=== PATIENT | male | born 1950 | race Caucasian/White ===

== ENCOUNTER → 2019-05-21 | Outpatient (CLI) | payer MEDICARE, SELFPAY ==
[2019-04-30 11:04] VITALS: BMI 39.9
--- NOTE | 2019-05-21 10:55 | ECHOCS_ITS ---
Reason For Study: PHTN, PACs Procedure This was a 2D Doppler, Color Flow transthoracic echocardiogram. The study was technically difficult. Due to body habitus and arrhythmia. Exam performed in department. Left Ventricle Normal size and thickness. The estimated ejection fraction is 65 %. No regional wall motion abnormalities noted. Right Ventricle Severely dilated right ventricle. Mild to moderate global right ventricular systolic dysfunction. Atria The left atrium is moderately enlarged. Normal right atrium. Normal atrial septum. Mitral Valve The mitral valve is structurally normal. No prolapse or stenosis seen. Tricuspid Valve Normal tricuspid valve. Trivial tricuspid valve insufficiency. Right ventricular systolic pressure estimated to be 31 mmHg. Aortic Valve Normal aortic valve. Trisinus/trileaflet aortic valve. Pulmonic Valve Normal pulmonic valve. Great Vessels Normal aortic root. Normal arch. Normal inferior vena cava. Inferior vena cava collapse with sniff. Pericardium/Pleural No pericardial effusion. Medication 22 gauge I.V. with prn adaptor inserted into right arm. Diluted definity 4.0ml given slow IV push to enhance endocardial definition. MMode/2D Measurements & Calculations LVIDd: 5.8 cm IVSd: 1.0 cm Ao root diam: 3.6 cm LVIDs: 4.1 cm LVPWd: 1.3 cm RVDd: 4.6 cm FS: 29.6 % LAV(MOD-bp): 96.2 ml LA A4 area: 23.5 cm2 LA dimension(2D): 4.8 cm LAV(MOD-bp) Indexed: 36.0 ml/m2 LAV(MOD-sp2): 88.5 ml LAV(MOD-sp4): 88.9 ml RA A4 area: 15.5 cm2 Doppler Measurements & Calculations MV E max hunter: 68.3 cm/sec Lat Peak E' Hunter: 5.1 cm/sec Med Peak E' Hunter: 6.2 cm/sec MV A max hunter: 87.7 cm/sec E/E' lat: 13.4 E/E' med: 11.0 MV E/A: 0.78 Ao V2 max: 162.0 cm/sec LV V1 max: 87.4 cm/sec PA V2 max: 116.3 cm/sec Ao max P.6 mmHg LV V1 max P.1 mmHg TR max hunter: 255.3 cm/sec TR max P.1 mmHg Interpretation Summary The estimated ejection fraction is 65 %. Severely dilated right ventricle. Mild to moderate global right ventricular systolic dysfunction. The left atrium is moderately enlarged. Right ventricular systolic pressure estimated to be 31 mmHg. Compared to echo report dated 07/18/2017, no appreciable changes noted. The study was technically difficult. Contrast injection was performed. Ordering Physician: Dayday Vargas Referring Physician: Virgilio Hazel Performed By: India Becerra RDCS, RVT
== END | disposition home or self-care (01) ==
LOC: CVS 10:53
PROVIDERS: Family Provider Family Medicine; PCP Family Medicine; Referring Provider Internal Medicine Cardiovascular Disease; Visit Provider Internal Medicine Cardiovascular Disease
DX: I49.1 Atrial premature depolarization (principal)
CPT/HCPCS: 93306; Q9957; A4216; C8929

== ENCOUNTER → 2019-06-08 15:45 | Outpatient (CLI) | payer MEDICARE, SELFPAY ==
[2019-04-30 11:04] VITALS: BMI 39.9
--- NOTE | 2019-06-08 16:35 | RAD_ITS ---
STUDY: X-RAY - ABDOMEN/PELVIS REASON FOR EXAM: Male, 69 years old. Right-sided ureteral stone. TECHNIQUE: Single AP view of the abdomen / pelvis. COMPARISON: None. FINDINGS: Normal visualized lung bases. There is an unremarkable bowel gas pattern. There is no demonstrated free abdominal air. The visualized liver, spleen and kidneys are grossly normal in size and morphology. No definite renal or ureteral stones are seen, however the exam is markedly limited by significant overlying fecal contents. There are calcified phleboliths in the pelvis. Normal visualized osseous structures. RAD/Abdomen Single View IMPRESSION: No definite acute abnormality. Electronically Signed: German Coates MD at 17:09 EDT , Service support ,
== END ==
PROVIDERS: Family Provider Family Medicine; PCP Family Medicine; Referring Provider Nurse Practitioner Adult Health; Visit Provider Nurse Practitioner Adult Health
DX: N20.1 Calculus of ureter (principal)
CPT/HCPCS: 74018

== ENCOUNTER → 2019-07-08 09:04 | Outpatient (CLI) | payer MEDICARE, SELFPAY ==
[2019-04-30 11:04] VITALS: BMI 39.9
--- NOTE | 2019-07-08 15:50 | RAD_ITS ---
HISTORY:right sided kidney stone right sided kidney stone EXAMINATION/TECHNIQUE: XR Abdomen 1 View: COMPARISON: June 08, 2019 FINDINGS: LINES AND TUBES: None. BOWEL GAS PATTERN: Non-obstructive. No bowel or stomach distention. FREE AIR: Not assessed on a single supine view. ORGANOMEGALY: Not seen. CALCIFICATIONS: There are vascular calcifications in the pelvis There is a right ureteral stent with the proximal pigtail in the region of the right renal pelvis and the distal in the region of the bladder. Question calcifications overlying the right kidney but poorly visualized on this study I do not see calcifications within the ureter There are vascular cath occasions in the pelvis LOWER CHEST: Not visualized on this study BONES AND SOFT TISSUES: No acute pathology. RAD/Abdomen Single View IMPRESSION: Right ureteral stent. There may be calcifications seen overlying the right kidney but poorly visualized no calcifications are seen in the region of the right ureteral stent There are vascular calcifications in the pelvis at 0003 Reported and signed by: Twila Petty DO Electronically Signed: Twila Petty DO at 0:02 EDT Tel , Service support ,
== END ==
PROVIDERS: Family Provider Family Medicine; PCP Family Medicine; Referring Provider Urology; Visit Provider Urology
DX: N20.0 Calculus of kidney (principal)
CPT/HCPCS: 74018

== ENCOUNTER → 2019-07-13 14:04 | Outpatient (CLI) | payer MEDICARE, SELFPAY ==
[2019-04-30 11:04] VITALS: BMI 39.9
--- NOTE | 2019-07-13 14:07 | RAD_ITS ---
STUDY: X-RAY - ABDOMEN/PELVIS REASON FOR EXAM: Male, 69 years old. Right-sided kidney stone. TECHNIQUE: Single AP view of the abdomen / pelvis. COMPARISON: 07/08/2019. FINDINGS: Normal visualized lung bases. Right ureteral stent remains in satisfactory position. Faintly seen calcifications in position compatible with the right kidney are consistent with stones and were present previously. However there are less visualized calcifications on the right than on the previous study. No definite calcifications along the course of the ureter. There is an unremarkable bowel gas pattern. There is no demonstrated free abdominal air. The visualized liver, spleen and kidneys are grossly normal in size and morphology. There are calcified phleboliths in the pelvis. Normal visualized osseous structures. RAD/Abdomen Single View IMPRESSION: Stable right ureteral stent. Probable right renal stones, possibly fewer than on the previous study. Electronically Signed: German Coates MD at 16:09 EDT , Service support ,
== END ==
PROVIDERS: Family Provider Family Medicine; PCP Family Medicine; Referring Provider Nurse Practitioner Adult Health; Visit Provider Nurse Practitioner Adult Health
DX: N20.0 Calculus of kidney (principal)
CPT/HCPCS: 74018

== ENCOUNTER → 2019-08-23 14:30 | Outpatient (CLI) | payer MEDICARE, SELFPAY ==
[2019-04-30 11:04] VITALS: BMI 39.9
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
[2019-08-23 15:34] LABS: Anion Gap 5 (5-15); BUN 19 mg/dL (7-18); BUN/Creat Ratio 18.8 RATIO (10-20); Calcium,Total 8.9 mg/dL (8.5-10.1); Chloride 106 mmol/L (98-107); Creatinine, Serum 1.01 mg/dL (0.70-1.30); EST Glomerular Filtration Rate 77 mL/min (>60); Est Glom Filt Rate - Afr Amer 94 mL/min (>60); Glucose 81 mg/dL (74-106); Potassium 4.1 mmol/L (3.5-5.1); Sodium Level 141 mmol/L (136-145)
== END ==
PROVIDERS: Family Provider Family Medicine; PCP Family Medicine; Referring Provider Urology; Visit Provider Urology
DX: N20.0 Calculus of kidney (principal)
CPT/HCPCS: 36415; 74018; 80048

== ENCOUNTER 2020-01-27 15:15 | Emergency (ER) | payer MEDICARE, SELFPAY ==
[2019-04-30 11:04] VITALS: BMI 39.9
[2020-01-27 15:16] VITALS: BP 153/102; PULSE 92; PULSE 93; RESP 14; RESP 17; TEMP 36.6; O2SAT 95; O2SAT 97; BMI 41.0
--- NOTE | 2020-01-27 15:23 | EKG12_ITS ---
Test Reason : SOB Blood Pressure : / mmHG Vent. Rate : 095 BPM Atrial Rate : 095 BPM P-R Int : 220 ms QRS Dur : 122 ms QT Int : 398 ms P-R-T Axes : 073 -70 068 degrees QTc Int : 500 ms Sinus rhythm with 1st degree A-V block with Premature atrial complexes with Aberrant conduction Left axis deviation Inferior infarct , age undetermined Abnormal ECG Confirmed by ZOE DICKEY ([id number]), editor news JANET PRADO ([id number]) on 01/31/2020 1:04:18 PM Referred By: JEANMARIE Confirmed By:ZOE DICKEY
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
[2020-01-27 15:39] LABS: Absolute Lymphocyte Count 2.81 X10^3/uL (0.83-4.51); Basophil% 1.2 % (0-1); Eosinophil# 0.22 X10^3/uL; Eosinophils% 2.7 % (0-5); Hematocrit 49.5 % (40-54); Hemoglobin 15.7 g/dL (13.0-16.5); Lymphocyte # 2.81 X10^3/ul (4.0); Lymphocyte % 34.1 % (19-41); Mean Corp Hgb Conc 31.7 g/dL (32-36); Mean Corpuscular Hgb 29.5 pg (27.0-32.0); Mean Corpuscular Volume 92.9 fL (80-94); Monocyte# 0.96 X10^3/uL; Monocyte% 11.7 % (0-10); NRBC Flagged by Analyzer 0 % (0-5); Neutrophil # 4.03 X10^3/uL (2.7-7.7); Platelet Count 199 K/mm3 (150-450); RBC Distribution Width CV 13.4 % (11.6-14.6); RBC Distribution Width SD 45.4 fl (35.1-43.9); Red Blood Count 5.33 M/mm3 (4.6-6.2); White Blood Count 8.2 K/mm3 (4.4-11.0)
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
[2020-01-27 15:46] LABS: Base Excess 3 mmol/L (-2 to +2); Bicarbonate 28.8 mmol/L (22-26); Blood Gas Specimen Type ART; O2 Delivery Device NRB Mask; PO2 104 mmHG (75-100); SITE L Radial; SO2 97 % (95-99); Time Given 1540; Total Carbon Dioxide 30 mmol/L; pCO2 56.3 mmHg (35-45); pH 7.32 (7.35-7.45)
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
[2020-01-27 15:49] LABS: Prothrombin Time (Protime)PT. 13.2 SECONDS (11.7-14.9)
[2020-01-27 15:51] LABS: Partial Thromboplast Time 25.3 Seconds (24.1-36.2)
[2020-01-27 16:04] LABS: Anion Gap 8 (5-15); BUN 25 mg/dL (7-18); BUN/Creat Ratio 23.8 RATIO (10-20); Calcium,Total 8.7 mg/dL (8.5-10.1); Chloride 104 mmol/L (98-107); Creatinine, Serum 1.05 mg/dL (0.70-1.30); EST Glomerular Filtration Rate 74 mL/min (>60); Est Glom Filt Rate - Afr Amer 89 mL/min (>60); Estimated Creatinine Clearance 76.01 ml/min; Glucose 127 mg/dL (74-106); Potassium 3.9 mmol/L (3.5-5.1); Sodium Level 141 mmol/L (136-145)
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
[2020-01-27] MEDS: Diphth,Pertuss(Acell),Tet Vac 0.5 ML Vial IM (16:24)
[2020-01-27] MEDS: Cefazolin 1 GM/50 ML BAG IV (16:25)
[2020-01-27 16:43] VITALS: BP 130/79; PULSE 86; RESP 16; O2SAT 96; O2SAT 98
== END 2020-01-27 16:57 | disposition short-term general hospital (02) ==
PROVIDERS: Emergency Provider Emergency Medicine; PCP Family Medicine
DX: S27.321A Contusion of lung, unilateral, initial encounter (principal); S27.2XXA Traumatic hemopneumothorax, initial encounter; S06.0X9A Concussion with loss of consciousness of unspecified duration, initial encounter; S42.002A Fracture of unspecified part of left clavicle, initial encounter for closed fracture; S22.41XA Multiple fractures of ribs, right side, initial encounter for closed fracture; J96.01 Acute respiratory failure with hypoxia; J96.02 Acute respiratory failure with hypercapnia; V59.60XA Unspecified occupant of pick-up truck or van injured in collision with unspecified motor vehicles in traffic accident, initial encounter; Y93.89 Activity, other specified; Y92.9 Unspecified place or not applicable; M54.2 Cervicalgia; I10 Essential (primary) hypertension; E66.9 Obesity, unspecified; Z68.41 Body mass index [BMI] 40.0-44.9, adult; Z87.891 Personal history of nicotine dependence
CPT/HCPCS: 32551; 36600; 51702; 70450; 71045; 71250; 72125; 74176; 80048; 82803; 85025; 85610; 85730; 90715; 93005; 96365; 99285; J7030; A4216

== ENCOUNTER → 2020-02-17 13:54 | Outpatient (CLI) | payer MEDICARE, SELFPAY ==
[2020-01-27 15:16] VITALS: BMI 41.0
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
== END ==
LOC: CT 13:57
PROVIDERS: PCP Family Medicine; Referring Provider Physician Assistant Surgical; Visit Provider Physician Assistant Surgical
DX: S42.022A Displaced fracture of shaft of left clavicle, initial encounter for closed fracture (principal)
CPT/HCPCS: 73200

== ENCOUNTER → 2020-03-22 13:56 | Outpatient (CLI) | payer MEDICARE, SELFPAY ==
--- NOTE | 2020-03-22 14:10 | US_ITS ---
STUDY: THYROID ULTRASOUND REASON FOR EXAM: Male, 70 years old. GOITER TECHNIQUE: Ultrasound evaluation of the thyroid was performed with real-time and static gold-scale imaging. COMPARISON: None. FINDINGS: RIGHT LOBE: The right lobe of the thyroid gland is mildly enlarged, measuring 4.8 x 3.3 x 3.1 cm. There is a heterogeneous echotexture. A 2.9 x 1.9 x 2.0 cm heterogeneous circumscribed nodule is present in the midpole. LEFT LOBE: The left lobe of the thyroid gland is mildly to moderately enlarged measuring 5.8 x 2.4 x 3.0 cm. There is a heterogeneous echotexture. A 2.6 x 2.2 x 2.1 cm primarily hypoechoic but heterogeneous nodule is present in the midpole region. ISTHMUS: The isthmus measures 5 mm. The regional lymph nodes are normal. US/Thyroid IMPRESSION: 1. Bilateral heterogeneous dominant nodules of the thyroid gland statistically related to multinodular quarter. Definitive diagnosis can be obtained with ultrasound-guided fine-needle aspiration if clinically indicated. Electronically Signed: Roge Graf MD at 14:53 EDT , Service support ,
== END ==
PROVIDERS: PCP Family Medicine; Referring Provider Family Medicine; Visit Provider Family Medicine
DX: E04.9 Nontoxic goiter, unspecified (principal)
CPT/HCPCS: 76536

== ENCOUNTER → 2020-04-10 13:13 | Outpatient (CLI) | payer MEDICARE, SELFPAY ==
--- NOTE | 2020-04-10 | ASPIG_PTH ---
PATIENT: YFN BEJARANO LOC: [facility]#:[id number] AGE/SX: 75/M ROOM: RE04/10/[address]: Dr. Virgilio Hazel MD : 1950 BED: DIS: SPEC #: [id number] RECD: 04/10/20 14:32 STATUS: EKTA MICHELA #: [id number] NATTY: 04/10/20 00:[address]: Virgilio Hazel DEPT: CYTOLOGY RECD BY: Ashley Farley Tissues: Thyroid gland, NOS Procedures: FNA Specimen Adequacy Special Stain Group II Surgery Specimen Level IV Cytology Other HEADER OPERATION: Ultrasound-guided FNA left thyroid mass PRE-OP DIAGNOSIS: Left thyroid mass TISSUE SUBMITTED: Left thyroid mass DIAGNOSIS CYTOLOGY Fine needle aspiration, left thyroid mass (smears and cell block): Adequate for evaluation. Negative, consistent with benign follicular nodule. AM:duane 04/11/20 COMMENT The specimen is evaluated at the time of FNA by Dr. Klein. Immediate Evaluation: Pass 1 - Follicular cells present. Pass 2 - Follicular cells present. CYTOLOGY STUDY Slides are reviewed. CYTOLOGY GROSS Pass 1 - Received is 0.5 ml of reddish fluid labeled with the patient's name, and designated left thyroid mass. Four imprints and one pap are made from the submitted fluid and the rest is added to CytoLyt for cell block preparation. Submitted for cytology study. Pass 2 - Received is 0.2 ml of reddish fluid labeled with the patient's name, and designated left thyroid mass. Two imprints and one pap are made from the submitted fluid and the rest is added to CytoLyt for cell block preparation. Submitted for cytology study. / AM:duane 04/10/20 TC:5 CPT: 67475, 87182, 47982, 54784
--- NOTE | 2020-04-10 13:23 | US_ITS ---
PROCEDURE: ULTRASOUND GUIDED LEFT THYROID FNA/BIOPSY. DATE: April 10, 2020. INDICATION: Male, 70 years old. Left thyroid nodule. PHYSICIAN: Gonsalo Yates M.D. MEDICATIONS: 2% lidocaine administered subcutaneously for local anesthesia. ACCESS SITE: Left - anterior approach. NEEDLE: 25-gauge FNA needle. SPECIMEN: Multiple FNA specimen collected and given to pathology. EBL: None. COMPLICATIONS: None immediate. PROCEDURE: The risks, benefits, and alternatives to the procedure were explained to the patient. The specific risk of hemorrhage requiring further treatment or intervention was detailed and accepted. Written informed consent was obtained. The patient was brought into the ultrasound room and placed in the supine position on the stretcher. An appropriate entry site was identified. The overlying skin was prepped and draped in the usual sterile fashion. 2% lidocaine was administered subcutaneously for local anesthesia. Under ultrasound guidance, a 25-gauge FNA needle was advanced into the lesion. Aspiration was performed and the needle was withdrawn. A total of 2 passes were performed with specimen collected and given to the pathologist who was present during the procedure. Hemostasis was achieved with manual compression. Repeat ultrasound images of the biopsy area was performed which demonstrated no gross bleeding or hematoma. An antibiotic ointment dressing was placed and the patient was given an icepack. The patient tolerated the procedure well without immediate complications. The patient was discharged in stable condition. US/FNA 1st Biopsy w/ US IMPRESSION: Successful ultrasound-guided left thyroid nodule FNA/biopsy, as described above. Electronically Signed: Gonsalo Yates, at 14:46 EDT , Service support ,
== END ==
PROVIDERS: PCP Family Medicine; Referring Provider Family Medicine; Visit Provider Family Medicine
DX: E04.1 Nontoxic single thyroid nodule (principal)
CPT/HCPCS: 10005; 88161; 88172; 88305; 88313

== ENCOUNTER → 2020-08-30 16:26 | Outpatient (CLI) | payer MEDICARE, SELFPAY ==
[2020-08-30 16:13] VITALS: BMI 37.2
--- NOTE | 2020-08-30 16:28 | RAD_ITS ---
STUDY: X-RAY - LEFT KNEE REASON FOR EXAM: Male, 70 years old. fall, pain TECHNIQUE: 4 view(s) of the knee. COMPARISON: None. FINDINGS: Normal visualized distal femur. Normal visualized proximal tibia and fibula. Normal proximal tibiofibular articulation. There is moderate degenerative arthrosis of the medial femorotibial compartment with moderate joint space narrowing. There is mild degenerative arthrosis of the lateral femorotibial compartment. There is mild degenerative arthrosis of the patellofemoral articulation. There is a moderate volume joint effusion. The soft tissue structures are unremarkable. RAD/Knee 4 or More Views IMPRESSION: 1. No acute fracture or dislocation. 2. Moderate arthrosis. 3. Moderate joint effusion. MRI may be useful. Electronically Signed: Shady Campos MD at 17:30 EDT Tel , Service support ,
--- NOTE | 2020-08-30 16:30 | RAD_ITS ---
STUDY: X-RAY - PELVIS AND LEFT HIP REASON FOR EXAM: Male, 70 years old. fall, pain TECHNIQUE: 3 views of the pelvis and hip. COMPARISON: None. FINDINGS: There is a normal bowel gas pattern. There are multiple calcified phleboliths. Normal bilateral iliac wings, sacroiliac joints and visualized sacrum. Normal bilateral superior and inferior pubic rami. Normal pubic symphysis. Normal bilateral ischial tuberosities. Normal visualized femoral head. Normal acetabulum. Normal hip joint. There is no acute fracture. RAD/HIP, UNI W/ Pelvis 2-3 Views IMPRESSION: Normal x-ray examination of the pelvis and hip. Electronically Signed: Kwaku Kelly MD at 17:56 EDT , Service support ,
--- NOTE | 2020-08-30 16:30 | RAD_ITS ---
STUDY: X-RAY - RIGHT KNEE REASON FOR EXAM: Male, 70 years old. fall, pain TECHNIQUE: 4 view(s) of the knee. COMPARISON: None. FINDINGS: Normal visualized distal femur. Normal visualized proximal tibia and fibula. Normal proximal tibiofibular articulation. There is severe degenerative arthrosis of the medial femorotibial compartment with severe joint space narrowing. There is mild degenerative arthrosis of the lateral femorotibial compartment. There is mild degenerative arthrosis of the patellofemoral articulation. There is a soft tissue prominence in the suprapatellar region suggesting a small volume joint effusion. The soft tissue structures are unremarkable. RAD/Knee 4 or More Views IMPRESSION: 1. No acute fracture or dislocation. 2. Severe arthrosis with a small joint effusion. Electronically Signed: Shady Campos MD at 17:31 EDT Tel , Service support ,
== END ==
LOC: MTRAD 16:27
PROVIDERS: PCP Family Medicine; Referring Provider Physician Assistant; Visit Provider Physician Assistant
DX: S79.912A Unspecified injury of left hip, initial encounter (principal); S89.90XA Unspecified injury of unspecified lower leg, initial encounter; W19.XXXA Unspecified fall, initial encounter; M17.0 Bilateral primary osteoarthritis of knee
CPT/HCPCS: 73502; 73564

== ENCOUNTER → 2021-07-24 10:19 | Outpatient (CLI) | payer MEDICARE, SELFPAY ==
[2021-07-24 11:17] LABS: PSA,Total - Annual Screen 8.12 ng/mL (0.00-4.00)
[2021-07-24 16:56] LABS: Mucous, Urine 0 SEEN /hpf (<or=2+); Red Blood Cells-Urine 0 SEEN /hpf (0-5); Squamous Epithelial Cells - UA 0 SEEN /hpf (0-5)
[2021-07-24 17:09] LABS: Color, Urine Yellow (Yellow); Glucose, Dipstick Normal (Normal); Ketone-Dipstick Negative (Negative); Leukocyte Esterase-Dipstick 500 /ul (Negative); Nitrite-Dipstick Positive (Negative); Occult Blood-Urine 10 /ul (Negative); Protein-Dipstick Negative (Negative); Urine Bilirubin Dipstick Negative (Negative); Urine Clarity Sl. Cloudy (Clear); Urine Urobilinogen Normal (Normal)
[2021-07-24 17:23] LABS: Bacteria 2+ /hpf (None Seen); White Blood Cells 25-50 SEEN /hpf (0-5)
== END ==
PROVIDERS: PCP Family Medicine; Referring Provider Nurse Practitioner Adult Health; Visit Provider Nurse Practitioner Adult Health
DX: Z12.5 Encounter for screening for malignant neoplasm of prostate (principal); R31.21 Asymptomatic microscopic hematuria
CPT/HCPCS: 36415; 81001; 84153; 87077; 87086; 87088; 87186; G0103

== ENCOUNTER → 2021-08-15 13:54 | Outpatient (CLI) | payer MEDICARE, SELFPAY ==
[2021-08-15 15:39] LABS: PSA,Total- Diagnostic 4.47 ng/mL (0.0-4.0)
== END ==
LOC: LAB 13:59
PROVIDERS: PCP Family Medicine; Visit Provider Nurse Practitioner Adult Health
DX: R97.20 Elevated prostate specific antigen [PSA] (principal)
CPT/HCPCS: 36415; 84153

== ENCOUNTER → 2021-08-23 13:57 | Outpatient (CLI) | payer MEDICARE, SELFPAY ==
--- NOTE | 2021-08-23 14:00 | RAD_ITS ---
STUDY: X-RAY - ABDOMEN/PELVIS REASON FOR EXAM: Male, 71 years old. UTI TECHNIQUE: AP abdomen radiograph COMPARISON: 01/27/2020 CT FINDINGS: Mild gaseous distention of the sigmoid. Abundant fecal burden. There is no demonstrated free abdominal air. The visualized liver, spleen and kidneys are grossly normal in size and morphology. There are calcified phleboliths in the pelvis. There are diffuse degenerative changes of the visualized lumbar spine. RAD/Abdomen Single View IMPRESSION: Mild gaseous distention of the sigmoid. Electronically Signed: Esvin Alejandre MD at 6:59 EDT Tel , Service support ,
== END ==
LOC: RAD 13:58
PROVIDERS: PCP Family Medicine; Referring Provider Urology; Visit Provider Urology
DX: N40.1 Benign prostatic hyperplasia with lower urinary tract symptoms (principal); N39.0 Urinary tract infection, site not specified
CPT/HCPCS: 74018

== ENCOUNTER 2022-06-17 18:18 | Emergency (ER) | payer MEDICARE, SELFPAY ==
[2022-06-17 18:19] VITALS: BP 210/112; PULSE 65; RESP 18; TEMP 35.8; O2SAT 93; BMI 38.7
--- NOTE | 2022-06-17 20:17 | CT_ITS ---
INDICATION: LLQ Pain, Lt flank pain EXAMINATION: CT ABDOMEN AND PELVIS WITHOUT CONTRAST - CT Abdomen And Pelvis W/O Contrast Injection TECHNIQUE: Helically acquired images were obtained of the abdomen and pelvis without oral or IV contrast. A radiation dose optimization technique was used for this scan. IV Contrast dosage and agent: None. Oral contrast: None. COMPARISON: 01/27/2020. FINDINGS: LOWER CHEST: Lung bases are clear. No cardiomegaly or pericardial effusion. LIVER: Mildly decreased density may represent mild hepatic steatosis. Normal size and contour. No focal mass. GALLBLADDER AND BILIARY TREE: No calcified gallstones. No gallbladder distension or wall edema. No intra- or extrahepatic biliary ductal dilation. PANCREAS: No focal cystic or solid mass. There is moderate fatty atrophy. SPLEEN: Normal size without focal cystic or solid mass. Some punctate calcifications are visible. Small splenule inferior to the spleen. ADRENAL GLANDS: No nodules. KIDNEYS, URETERS and BLADDER: Normal right kidney location and size. 4 mm nonobstructing stones seen upper pole right kidney. Left kidney fossa is empty. There is a left pelvic kidney with extrarenal pelvises. Mild perinephric stranding density unchanged compared to prior exam. No hydronephrosis. Bladder is unremarkable. PERITONEUM: No ascites or free air. No other fluid collection. BOWEL: No evidence of acute appendicitis. No abnormally distended bowel loops or air fluid levels. No wall thickening or mass. No focal inflammatory changes. Highly tortuous sigmoid colon. LYMPH NODES: No enlarged mesenteric or retroperitoneal lymph nodes. VESSELS: Aorta is non-dilated. REPRODUCTIVE ORGANS: Normal prostate. ABDOMINAL WALL: Left inguinal, mostly fat filled hernia unchanged in appearance with short segment of fluid density , unchanged. BONES: No lytic or blastic abnormality. CT/Abdomen/Pelvis without Cont IMPRESSION: Nonobstructing 4 mm stone right kidney. Empty left renal fossa. 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 Suspected mild hepatic steatosis. Unchanged left inguinal hernia containing fat and a short segment of fluid density. Electronically Signed: Carl Rowell DO at 21:45 EDT ,
--- NOTE | 2022-06-17 20:18 | EDS_ITS ---
HPI HPI - GI History of Present Illness Chief Complaint: Abd Pain Informant: patient Abdominal Pain/Flank Pain Onset: Days (3) Context: Sudden Onset (Unsure of what he was doing) Timing: Continuous Quality: Aching Location: LLQ (And groin) Current Severity: Moderate Maximum Severity: Moderate Worsened by: Nothing Relieved by: Nothing Nausea/Vomiting/Emesis GI Symptom: Positive for Nausea; Negative for Vomiting Diarrhea/Melena/Hematochezia GI Symptom: Negative for Diarrhea, Melena or Hematochezia Associated Symptoms Associated Symptoms: Negative for Dysuria, Frequency, Hematuria or Urgency Narrative Narrative: Patient with left groin and lower quadrant pain. Radiates around to his left low back/flank. States he had a left inguinal herniorrhaphy 3 years ago or so, and hurts in that area but he has noticed no bulge or discomfort in his scro darnell/testicles. No urinary symptoms. No fevers or chills. Some nausea no vomiting. Normal bowel movements without blood or melena. 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 [facility] Medical History BPH (benign prostatic hyperplasia) Bradycardia Dysuria Elevated PSA GERD (gastroesophageal reflux disease) Gross hematuria Hiatal hernia HTN (hypertension) Hypertension Hypotension, unspecified Left ventricular hypertrophy Obesity Palpitations Prostatitis Renal calculi Urinary calculi UTI (urinary tract infection) Home Medications hydrochlorothiazide 12.5 mg tablet 12.5 mg PO DAILY #30 tabs 03/26/22 [Rx Last Taken Unknown] losartan 50 mg tablet 50 mg PO DAILY #90 tabs 04/15/22 [Rx Last Taken Unknown] cephalexin 500 mg capsule 500 mg PO Q6 #20 CAPSULES 06/17/22 [Rx Last Taken Unknown] hydrocodone-acetaminophen 5-325mg 5mg-325mg 1 tab PO Q6H PRN PRN Pain 2 days #8 TABLETS 06/17/22 [Rx Last Taken Unknown] tamsulosin 0.4 mg capsule 0.4 mg PO DAILY 06/17/22 [History Last Taken Unknown] zaleplon 10 mg capsule 10 mg PO DAILY 06/17/22 [History Last Taken Unknown] Allergy/AdvReac Type Severity Reaction Status Date / Time Iodinated Contrast Media Allergy Anaphylaxis Verified 06/17/22 18:19 [Iodinated Contrast Media - Oral and] Family History Mother Heart disease PPM Diabetes Father Cancer liver cancer Brother Cardiomyopathy Surgical History History of back surgery History of left inguinal hernia repair (~06/21/17) History of shoulder replacement hx tumor excision (~1981) Social History Smoking Status: Unknown if ever smoked alcohol intake: never ROS ROS ED Constitutional Constitutional ED: Denies chills or fever(s) Eyes Eyes: Denies change in vision or diplopia ENT ENT ED: Denies rhinorrhea or sore throat Cardiovascular Cardiovascular: Denies chest pain or palpitations Respiratory/Chest Respiratory/Chest: Denies cough or dyspnea Gastrointestinal Gastrointestinal: Reports abdominal pain and nausea; Denies diarrhea or vomiting Genitourinary Genitourinary ED: Reports flank pain; Denies dysuria or hematuria Musculoskeletal Musculoskeletal: Reports back pain; Denies neck pain Integumentary Denies abscess or rash Neurologic Neurologic: Denies headache(s), paresthesias or weakness Psychiatric Psychiatric: Denies anxiety or suicidal thoughts EXAM Physical Exam Const Vital Signs: 06/17/22 18:19 06/17/22 22:33 Temperature 96.5 F L Temperature Source Temporal Pulse Rate 65 Respiratory Rate 18 Blood Pressure 210/112 H 138/82 H Blood Pressure Mean 144 100 Pulse Ox 93 Oxygen Delivery Method Room Air Positive well nourished, well developed and obese General Appearance ED: well developed and NAD Nutritional Appearance: obese HEENT Reports moist mucous membranes normocephalic and atraumatic Eyes PERRL and EOMs intact bilaterally Neck full ROM and supple Resp normal respiratory effort and clear to auscultation bilaterally Cardio regular rate, regular rhythm and no murmurs GI non-distended GI Narrative: Tender left lower quadrant, less tender suprapubic area. No guarding or rebound tenderness. No palpable masses. Otherwise benign. No palpable hernias. No inguinal lymphadenopathy. Auscultation: normoactive bowel sounds Palpation: soft Back/Spine Back/Spine Narrative: Normal on inspection no rash. General Back: CVA tenderness left and other FROM Extremity normal to inspection General Extremety ED: Negative for edema, pulses abnormal or tenderness General Extremity: Negative for edema or pulses abnormal Neuro oriented x3, CN's II-XII intact bilaterally and no sensory deficits noted Sensorium / Orientation: awake and alert Motor Exam: strength 5/5 throughout Skin no rashes or lesions noted and no wounds MDM MDM MDM Narrative Medical decision making narrative: Patient has very high blood pressure as well as urinalysis that is suspicious for infection, his renal function however is within normal limits except for minor prerenal azotemia. He was treated here with Toradol and Zofran, and on reevaluation his blood pressure came down from 210/112 to 138/[address] was obtained given diverticulitis in the differential, as well as the fact that he is having pain at his left inguinal hernia site status post herniorrhaphy as well. Stable small hernia containing fat was noted and unchanged and is unlikely to be causing the symptoms in my opinion. No diverticulitis seen. He does not have left kidney in the posterior retroperitoneal fossa, but rather as noted it is anterior and lower. He has an incidental nephrolith in the right kidney that is not causing symptoms. Patient indicates after this that he has had some gallstones in the past, they are not noted on the CT, which does not rule them out. However he is not having symptoms of biliary colic right now. There is no explanation on these tests for his left flank pain. He is very insistent on an answer. I do not think he needs any other emergent testing right now, I think he can follow-up as an outpatient, I offered treatment for possible urinary infection although I agree with his opinion that it is probably not causing his pain. He now states he has more pain in his left lower quadrant than he does in his groin, and the pain that goes around his left side and back feels muscular. I advised him this is in the differential, as is colonic spasms without signs of acute inflammation/infection. He would prefer not to treat with antibiotics if he can help it, but he would except a prescription to use as a wait and see to see if his symptoms go away or not, and he is prescribed something to use as needed for pain. I advised close outpatient follow-up anyway especially because of his blood pressure reading 210/112 here. Lab Data Attestation: I reviewed the patient's lab results. Labs: Laboratory Results - last 24 hr 06/17/22 06/17/22 06/17/22 20:25 20:25 20:25 WBC 7.6 RBC 5.51 Hgb 16.7 H Hct 52.4 MCV 95.1 H MCH 30.3 MCHC 31.9 L RDW Std Deviation 45.5 H RDW Coeff of Marco 13.0 Plt Count TNP MPV 11.9 Immature Gran % (Auto) 0.500 Neut % (Auto) 67.7 Lymph % (Auto) 17.2 L [place] % (Auto) 10.5 H Eos % (Auto) 3.4 Baso % (Auto) 0.7 Absolute Neuts (auto) 5.2 Absolute Lymphs (auto) 1.31 Nucleated RBC % 0 Platelet Estimate ADEQUATE RBC Morphology N CHROM Anisocytosis RARE Macrocytosis RARE Sodium 139 Potassium 4.4 Chloride 107 Carbon Dioxide 25.0 Anion Gap 7 BUN 19 H Creatinine 0.92 Estim Creat Clear Calc 84.19 Est GFR (MDRD) Af Amer 104 Est GFR (MDRD) Non-Af 86 BUN/Creatinine Ratio 20.8 H Glucose 133 H Calcium 9.0 Urine Color Yellow Urine Clarity Sl. Cloudy Urine pH 6.0 Ur Specific [place] 1.020 Urine Protein 15 H Urine Glucose (UA) Normal Urine Ketones Negative Urine Occult Blood 10 H Urine Nitrite Negative Urine Bilirubin Negative Urine Urobilinogen Normal Ur Leukocyte Esterase 500 H Urine RBC 0 SEEN Urine WBC 5-10 SEEN Ur Squamous Epith Cells 0-5 SEEN Urine Bacteria 4+ Urine Mucus 0 SEEN Radiography Diagnostic Testing: Clinical Impression(s) from Imaging Studies Abdomen/Pelvis CT 06/17/22 20:17 IMPRESSION: Nonobstructing 4 mm stone right kidney. Empty left renal fossa. 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 Suspected mild hepatic steatosis. Unchanged left inguinal hernia containing fat and a short segment of fluid density. Electronically Signed: Carl Rowell DO at 21:45 EDT , Discharge Plan Triage Chief Complaint: Abd Pain ED Provider: Kwaku Galaviz Dx/Rx/DC Orders Clinical Impression: Acute left flank pain, ASB (asymptomatic bacteriuria), Accelerated hypertension Instructions: Hypertension Dc, ED Flank Pain, Uncertain Cause Prescriptions: New hydrocodone-acetaminophen [hydrocodone-acetaminophen] 5-325 mg tablet 1 tab PO Q6H PRN PRN (Reason: Pain) 2 Days Qty: 8 0RF cephalexin [cephalexin] 500 mg capsule 500 mg PO Q6 Qty: 20 0RF No Action tamsulosin 0.4 mg capsule 0.4 mg PO DAILY zaleplon 10 mg capsule 10 mg PO DAILY hydrochlorothiazide 12.5 mg tablet 12.5 mg PO DAILY Qty: 30 0RF losartan 50 mg tablet 50 mg PO DAILY Qty: 90 3RF Primary Care Provider: Virgilio Hazel Referrals: Virgilio Hazel MD [Primary Care Provider] - 3-5 Days if not improving Disposition Disposition: Home, Self Care
[2022-06-17] MEDS: Ketorolac 15 MG/ML Vial IV (20:36)
[2022-06-17] MEDS: Ondansetron 4 MG/2 ML Vial IV (20:36)
[2022-06-17 20:45] LABS: Mucous, Urine 0 SEEN /hpf (<or=2+); Red Blood Cells-Urine 0 SEEN /hpf (0-5)
[2022-06-17 20:47] LABS: Color, Urine Yellow (Yellow); Glucose, Dipstick Normal (Normal); Ketone-Dipstick Negative (Negative); Leukocyte Esterase-Dipstick 500 /ul (Negative); Nitrite-Dipstick Negative (Negative); Occult Blood-Urine 10 /ul (Negative); Protein-Dipstick 15 mg/dl (Negative); Urine Bilirubin Dipstick Negative (Negative); Urine Clarity Sl. Cloudy (Clear); Urine Urobilinogen Normal (Normal)
[2022-06-17 20:51] LABS: Absolute Lymphocyte Count 1.31 X10^3/uL (0.83-4.51); Absolute Neutrophil Count 5.2 X10^3/uL (2.0-7.7); Basophil# 0.05 X10^3/uL; Basophil% 0.7 % (0-1); Eosinophil# 0.26 X10^3/uL; Eosinophils% 3.4 % (0-5); Hematocrit 52.4 % (40-54); Hemoglobin 16.7 g/dL (13.0-16.5); Lymphocyte # 1.31 X10^3/ul (0.83-4.51); Lymphocyte % 17.2 % (19-41); Mean Corp Hgb Conc 31.9 g/dL (32-36); Mean Corpuscular Hgb 30.3 pg (27.0-32.0); Mean Corpuscular Volume 95.1 fL (80-94); Mean Platelet Vol. 11.9 fl (6.2-12.0); Monocyte% 10.5 % (0-10); NRBC Flagged by Analyzer 0 % (0-5); Neutrophil # 5.16 X10^3/uL (2.7-7.7); Neutrophil % 67.7 % (47-70); POSITIVE COUNT YES; RBC Distribution Width SD 45.5 fl (35.1-43.9); Red Blood Count 5.51 M/mm3 (4.6-6.2); White Blood Count 7.6 K/mm3 (4.4-11.0)
[2022-06-17 20:58] LABS: Bacteria 4+ /hpf (None Seen); Squamous Epithelial Cells - UA 0-5 SEEN /hpf (0-5); White Blood Cells 5-10 SEEN /hpf (0-5)
[2022-06-17 21:13] LABS: Anion Gap 7 (5-15); BUN 19 mg/dL (7-18); BUN/Creat Ratio 20.8 RATIO (10-20); Chloride 107 mmol/L (98-107); Creatinine, Serum 0.92 mg/dL (0.70-1.30); EST Glomerular Filtration Rate 86 mL/min (>60); Est Glom Filt Rate - Afr Amer 104 mL/min (>60); Estimated Creatinine Clearance 84.19 ml/min; Glucose 133 mg/dL (74-106); Potassium 4.4 mmol/L (3.5-5.1); Sodium Level 139 mmol/L (136-145)
[2022-06-17 21:15] LABS: Differential Indicated SCAN CRITERIA MET
[2022-06-17 21:17] LABS: Platelet Estimate ADEQUATE (ADEQ); Red Cell Morphology N CHROM NORMAL (NORM C&C)
[2022-06-17 21:18] LABS: Anisocytosis RARE; Macrocytosis RARE
[2022-06-17 22:33] VITALS: BP 138/82
== END 2022-06-17 23:30 | disposition home or self-care (01) ==
PROVIDERS: Emergency Provider Emergency Medicine; PCP Family Medicine; Visit Provider Emergency Medicine
DX: R82.71 Bacteriuria (principal); I10 Essential (primary) hypertension; N20.0 Calculus of kidney; E66.9 Obesity, unspecified; Z68.38 Body mass index [BMI] 38.0-38.9, adult; Z87.440 Personal history of urinary (tract) infections
CPT/HCPCS: 36415; 74176; 80048; 81001; 85025; 87086; 87088; 87186; 96374; 96375; 99283; J7030; A4216; J2405

== ENCOUNTER 2022-08-15 09:13 | Emergency (ER) | payer MEDICARE, SELFPAY ==
[2022-08-15] VITALS (8 sets, daily range): BP systolic 127–162; BP diastolic 81–130; PULSE 60–70; RESP 14–27; TEMP 36.8–37.1; O2SAT 94–96; BMI 39.5
--- NOTE | 2022-08-15 09:50 | EKG12_ITS ---
Test Reason : SYNCOPE Blood Pressure : / mmHG Vent. Rate : 070 BPM Atrial Rate : 070 BPM P-R Int : 252 ms QRS Dur : 162 ms QT Int : 430 ms P-R-T Axes : 056 -71 020 degrees QTc Int : 464 ms Sinus rhythm with 1st degree A-V block with Premature atrial complexes in a pattern of bigeminy Right bundle branch block Left anterior fascicular block Bifascicular block Abnormal ECG Confirmed by BRENDA DOS SANTOS, RITU ([id number]), fan mail editor SHANNA KEANE ([id number]) on 08/19/2022 9:46:52 A M Referred By: GURWINDER Confirmed By:ERI GUTIERREZ MD
--- NOTE | 2022-08-15 10:15 | RAD_ITS ---
STUDY: X-RAY CHEST REASON FOR EXAM: Male, 72 years old. Chest pain TECHNIQUE: Single AP portable view of the chest. COMPARISON: Comparison is made with prior study dated 01/27/2020. FINDINGS: EKG electrodes are seen Mild increase markings at the lung bases suggest mild scarring. No acute infiltrate is seen. There is no demonstrated pleural abnormality. Normal size heart. Normal mediastinum and eddy. Normal visualized pulmonary arteries. There is atherosclerotic calcification of the aortic arch with tortuosity. There are diffuse degenerative changes of the visualized thoracic spine. Status post right total shoulder replacement. There is no demonstrated abnormality of the visualized soft tissue structures of the upper abdomen. RAD/Chest 1 View (Portable) IMPRESSION: The findings suggest mild scarring at the lung bases. No focal infiltrate is seen. Electronically Signed: Gonsalo Yates MD at 10:37 EDT ,
[2022-08-15 10:17] LABS: Mucous, Urine 0 SEEN /hpf (<or=2+); Squamous Epithelial Cells - UA 0 SEEN /hpf (0-5)
[2022-08-15] MEDS: Aspirin 81 MG TAB.CHEW 324 MG PO (10:17)
[2022-08-15 10:23] LABS: Absolute Lymphocyte Count 0.48 X10^3/uL (0.83-4.51); Absolute Neutrophil Count 2.7 X10^3/uL (2.0-7.7); Basophil# 0.01 X10^3/uL; Basophil% 0.2 % (0-1); Eosinophil# 0.04 X10^3/uL; Eosinophils% 0.9 % (0-5); Hematocrit 48.6 % (40-54); Hemoglobin 15.6 g/dL (13.0-16.5); Lymphocyte # 0.48 X10^3/ul (0.83-4.51); Lymphocyte % 11.1 % (19-41); Mean Corp Hgb Conc 32.1 g/dL (32-36); Mean Corpuscular Volume 93.5 fL (80-94); Mean Platelet Vol. 10.2 fl (6.2-12.0); Monocyte# 1.03 X10^3/uL; Monocyte% 23.9 % (0-10); NRBC Flagged by Analyzer 0 % (0-5); Neutrophil # 2.73 X10^3/uL (2.7-7.7); Neutrophil % 63.4 % (47-70); POSITIVE DIFFERENTIAL YES; Platelet Count 138 K/mm3 (150-450); RBC Distribution Width CV 12.9 % (11.6-14.6); White Blood Count 4.3 K/mm3 (4.4-11.0)
[2022-08-15 10:24] LABS: Color, Urine Yellow (Yellow); Glucose, Dipstick Normal (Normal); Ketone-Dipstick Negative (Negative); Leukocyte Esterase-Dipstick 100 /ul (Negative); Nitrite-Dipstick Positive (Negative); Occult Blood-Urine 10 /ul (Negative); Protein-Dipstick 30 mg/dl (Negative); Urine Bilirubin Dipstick Negative (Negative); Urine Clarity Sl. Cloudy (Clear); Urine Urobilinogen Normal (Normal)
[2022-08-15 10:24] LABS: Differential Indicated SCAN CRITERIA MET
[2022-08-15 10:32] LABS: International Normalized Ratio 1.1; Prothrombin Time (Protime)PT. 13.7 SECONDS (11.7-14.9)
[2022-08-15 10:33] LABS: Partial Thromboplast Time 30.9 Seconds (24.1-36.2)
[2022-08-15 10:37] LABS: Bacteria 2+ /hpf (None Seen); Red Blood Cells-Urine 0-5 SEEN /hpf (0-5); White Blood Cells 10-25 SEEN /hpf (0-5)
[2022-08-15 10:44] LABS: Anion Gap 5 (5-15); BUN 16 mg/dL (7-18); BUN/Creat Ratio 13.3 RATIO (10-20); Calcium,Total 8.5 mg/dL (8.5-10.1); Chloride 104 mmol/L (98-107); EST Glomerular Filtration Rate 63 mL/min (>60); Est Glom Filt Rate - Afr Amer 76 mL/min (>60); Estimated Creatinine Clearance 64.55 ml/min; Glucose 133 mg/dL (74-106); Potassium 4.2 mmol/L (3.5-5.1); Sodium Level 139 mmol/L (136-145); Troponin-I HS (w/2H Reflex) 118 pg/mL (3.0-78.0)
--- NOTE | 2022-08-15 10:44 | EDS_ITS ---
HPI History of Present Illness Chief Complaint: Syncope Informant: patient Onset/Context/Timing Onset: Today Context: Sudden Onset Timing: Intermittent Quality: Lightheaded Location: Generalized Worsened by: Nothing Relieved by: Nothing Narrative Narrative: Patient presents with syncopal episode that occurred today. Patient states he was sitting and started to take a drink of water. Patient states that he felt like he was going to pass out. Patient states he attempted to get up and walk to his recliner. Patient states that he fell to the floor. Patient does not think he passed completely out. Patient states that the episode was very brief. 22-year-old patient states he felt lightheaded prior to this. Patient states he has had a recent fever of 102. Patient admits to some urinary frequency and pain in his low back. Patient states he feels like he might have a urinary tract infection. [facility] Medical History BPH (benign prostatic hyperplasia) Bradycardia Dysuria Elevated PSA GERD (gastroesophageal reflux disease) Gross hematuria Hiatal hernia Hypertension Hypotension, unspecified Left ventricular hypertrophy Obesity Palpitations Prostatitis Renal calculi Urinary calculi UTI (urinary tract infection) Home Medications hydrochlorothiazide 12.5 mg tablet 12.5 mg PO DAILY #30 tabs 03/26/22 [Rx Last Taken Unknown] losartan 50 mg tablet 50 mg PO DAILY #90 tabs 04/15/22 [Rx Last Taken Unknown] tamsulosin 0.4 mg capsule 0.4 mg PO DAILY 06/17/22 [History Last Taken Unknown] zaleplon 10 mg capsule 10 mg PO DAILY 06/17/22 [History Last Taken Unknown] cephalexin 500 mg capsule 500 mg PO Q6 #28 CAPSULES 08/15/22 [Rx Last Taken Unknown] nirmatrelvir 300 mg (150 mg x2)-ritonavir 100 mg tablet,dose pack(EUA) (Paxlovid) See Rx Instructions PO .COMPLEX #30 tabs 08/15/22 [Rx Last Taken Unknown] Allergy/AdvReac Type Severity Reaction Status Date / Time Iodinated Contrast Media Allergy Anaphylaxis Verified 08/15/22 09:21 [Iodinated Contrast Media - Oral and] Family History Mother Heart disease PPM Diabetes Father Cancer liver cancer Brother Cardiomyopathy Surgical History History of left inguinal hernia repair (~06/21/17) History of shoulder replacement hx tumor excision (~1981) Social History Smoking Status: Former smoker alcohol intake: never ROS ROS ED Constitutional Constitutional ED: Reports fever(s); Denies chills Eyes Eyes: Denies blurry vision or change in vision ENT ENT ED: Reports sore throat; Denies rhinorrhea Cardiovascular Cardiovascular: Denies chest pain or palpitations Respiratory/Chest Respiratory/Chest: Reports cough; Denies dyspnea Gastrointestinal Gastrointestinal: Denies nausea or vomiting Genitourinary Genitourinary ED: Reports urinary frequency; Denies dysuria or hematuria Musculoskeletal Musculoskeletal: Reports back pain; Denies neck pain Integumentary Denies abscess or rash Neurologic Neurologic: Denies headache(s) or weakness Allergic/Immunologic Allergic/Immunologic ED: Denies mouth swelling or urticaria EXAM Physical Exam Const Vital Signs: 08/15/22 09:16 08/15/22 09:21 08/15/22 09:24 Temperature 98.5 F 98.5 F Temperature Source Temporal Temporal Pulse Rate 68 69 Respiratory Rate 27 H 27 H Respiratory Effort Normal Non-Labored Respiratory Pattern Normal Blood Pressure 162/130 H 162/130 H Blood Pressure Mean 140 140 Pulse Ox 95 94 Oxygen Delivery Method Room Air Room Air 08/15/22 10:03 08/15/22 10:15 08/15/22 11:15 Temperature 98.5 F 98.8 F Temperature Source Temporal Temporal Pulse Rate 69 67 Respiratory Rate 14 20 H Respiratory Effort Respiratory Pattern Blood Pressure 145/90 H 150/92 H Blood Pressure Mean 108 111 Pulse Ox 94 95 Oxygen Delivery Method Room Air Room Air Room Air 08/15/22 11:32 08/15/22 12:15 Temperature 98.8 F 98.8 F Temperature Source Temporal Temporal Pulse Rate 70 66 Respiratory Rate 22 H 19 H Respiratory Effort Respiratory Pattern Blood Pressure 127/91 H 144/81 H Blood Pressure Mean 103 102 Pulse Ox 95 Oxygen Delivery Method Room Air Room Air Positive well nourished and well developed General Appearance ED: well developed and NAD HEENT Reports moist mucous membranes Neck supple and no JVD Resp normal respiratory effort and clear to auscultation bilaterally Cardio regular rate, regular rhythm and no murmurs GI normal to inspection, nondistended, normoactive bowel sounds and non-tender Palpation: soft Extremity normal to inspection General Extremety ED: Negative for edema or tenderness General Extremity: Negative for edema Neuro oriented x3, CN's II-XII intact bilaterally and no sensory deficits noted Sensorium / Orientation: alert Motor Exam: strength 5/5 throughout Psych mental status grossly normal Skin no rashes or lesions noted MDM MDM MDM Narrative Medical decision making narrative: EKG was obtained. On my interpretation, shows a sinus rhythm with a rate of 70. There is a first-degree AV block. MO interval was 252 ms. There is a left anterior fascicular block and a right bundle branch block noted. QRS interval was 162 ms. QTc interval was prolonged at 464 ms. There is left axis deviation at -71. No acute ST or T wave changes noted. This is unchanged compared to previous EKG dated 01/27/2020. Portable 1 view chest x-ray was obtained. On my interpretation, lung muse show scarring at the lung bases. There is normal cardiac silhouette. Bony thorax is normal. There is no acute process noted. Radiologist also interpreted the x-ray and agrees. CBC was within normal notes. PT with INR and PTT were within normal limits. Basic metabolic profile was essentially within normal limits. High-sensitivity troponin was borderline at 118. Urinalysis shows leukocyte esterases of 100 with positive nitrites. There were 10-25 white blood cells and 2+ bacteria. Urine culture was ordered. Patient was given a dose of Rocephin here. Patient's called and requested that a COVID-19 rapid antigen be obtained. This was done and was positive. 2- hour repeat high-sensitivity troponin was only slightly increased at 126. Patient was advised of his findings. Patient was given prescription for Paxlovid and Keflex. Patient was instructed to follow-up with his primary care physician in 5 to 7 days. Patient understood and was agreeable with the plan. All questions were answered. Lab Data Attestation: I reviewed the patient's lab results. Labs: Laboratory Results - last 24 hr 08/15/22 08/15/22 08/15/22 10:00 10:00 10:00 WBC 4.3 L RBC 5.20 Hgb 15.6 Hct 48.6 MCV 93.5 MCH 30.0 MCHC 32.1 RDW Std Deviation 44.0 H RDW Coeff of Marco 12.9 Plt Count 138 L MPV 10.2 Immature Gran % (Auto) 0.500 Neut % (Auto) 63.4 Lymph % (Auto) 11.1 L [place] % (Auto) 23.9 H Eos % (Auto) 0.9 Baso % (Auto) 0.2 Absolute Neuts (auto) 2.7 Absolute Lymphs (auto) 0.48 L Nucleated RBC % 0 Diff Path Review May foll PT 13.7 INR 1.1 APTT 30.9 Sodium 139 Potassium 4.2 Chloride 104 Carbon Dioxide 30.0 Anion Gap 5 BUN 16 Creatinine 1.20 Estim Creat Clear Calc 64.55 Est GFR (MDRD) Af Amer 76 Est GFR (MDRD) Non-Af 63 BUN/Creatinine Ratio 13.3 Glucose 133 H Calcium 8.5 Troponin I High Sens 118 H Urine Color Urine Clarity Urine pH Ur Specific [place] Urine Protein Urine Glucose (UA) Urine Ketones Urine Occult Blood Urine Nitrite Urine Bilirubin Urine Urobilinogen Ur Leukocyte Esterase Urine RBC Urine WBC Ur Squamous Epith Cells Urine Bacteria Urine Mucus 08/15/22 08/15/22 10:10 12:21 WBC RBC Hgb Hct MCV MCH MCHC RDW Std Deviation RDW Coeff of Marco Plt Count MPV Immature Gran % (Auto) Neut % (Auto) Lymph % (Auto) [place] % (Auto) Eos % (Auto) Baso % (Auto) Absolute Neuts (auto) Absolute Lymphs (auto) Nucleated RBC % Diff Path Review PT INR APTT Sodium Potassium Chloride Carbon Dioxide Anion Gap BUN Creatinine Estim Creat Clear Calc Est GFR (MDRD) Af Amer Est GFR (MDRD) Non-Af BUN/Creatinine Ratio Glucose Calcium Troponin I High Sens 126 H* Urine Color Yellow Urine Clarity Sl. Cloudy Urine pH 6.0 Ur Specific [place] 1.020 Urine Protein 30 H Urine Glucose (UA) Normal Urine Ketones Negative Urine Occult Blood 10 H Urine Nitrite Positive H Urine Bilirubin Negative Urine Urobilinogen Normal Ur Leukocyte Esterase 100 H Urine RBC 0-5 SEEN Urine WBC 10-25 SEEN Ur Squamous Epith Cells 0 SEEN Urine Bacteria 2+ Urine Mucus 0 SEEN Radiography Chest X-Ray - ED: 1 View, Read by ED Physician, Read by Radiologist and No Acute Disease Diagnostic Testing: Clinical Impression(s) from Imaging Studies Chest X-Ray 08/15/22 10:15 IMPRESSION: The findings suggest mild scarring at the lung bases. No focal infiltrate is seen. Electronically Signed: Gonsalo Yates MD at 10:37 EDT , EKG Initial EKG: Attestation: I personally reviewed and interpreted this EKG as follows: Interpretation: Sinus Rhythm (With first-degree AV block with a rate of 70), No Acute Injury Pattern, RBBB and LAFB Prior EKG tracings: available for review Prior: Unchanged (01/27/2020) Discharge Plan Triage Chief Complaint: Syncope ED Provider: Migue Pedroza Dx/Rx/DC Orders Clinical Impression: Urinary tract infection, Syncope, COVID-19 Instructions: Coronavirus Disease 2019 (COVID-19): Caring for Yourself or Others, ED Fainting, Uncertain Cause, ED Bladder Infection, Male (Adult) Prescriptions: New cephalexin [cephalexin] 500 MG capsule 500 mg PO Q6 Qty: 28 0RF Paxlovid (EUA) 300 mg (150 mg x 2)-100 mg tablets,dose pack See Rx Instructions .ROUTE .COMPLEX Qty: 30 0RF Rx Instructions: take TWO 150 mg tablets of nirmatrelvir with ONE 100 mg tablet of ritonavir twice daily for 5 days No Action tamsulosin 0.4 mg capsule 0.4 mg PO DAILY zaleplon 10 mg capsule 10 mg PO DAILY hydrochlorothiazide 12.5 mg tablet 12.5 mg PO DAILY Qty: 30 0RF losartan 50 mg tablet 50 mg PO DAILY Qty: 90 3RF Primary Care Provider: Virgilio Hazel Referrals: Virgilio Hazel MD [Primary Care Provider] - 3-5 Days Disposition Disposition: Home, Self Care
[2022-08-15] MEDS: Ceftriaxone 1 GM/50 ML BAG IV (11:31)
[2022-08-15 12:17] LABS: Reflex Troponin-HS? (from REC) Y
[2022-08-15 12:56] LABS: Troponin-I HS 126 pg/mL (3.0-78.0)
[2022-08-16 12:45] LABS: Pathologist Review Reviewed
== END 2022-08-15 14:28 | disposition home or self-care (01) ==
PROVIDERS: Emergency Provider Emergency Medicine; PCP Family Medicine; Visit Provider Emergency Medicine
DX: N39.0 Urinary tract infection, site not specified (principal); U07.1 COVID-19; R55 Syncope and collapse; I10 Essential (primary) hypertension; Z79.899 Other long term (current) drug therapy; Z87.891 Personal history of nicotine dependence
CPT/HCPCS: 36415; 71045; 80048; 81001; 84484; 85025; 85610; 85730; 87077; 87086; 87088; 87186; 87811; 93005; 96365; 99285; A4216